=== PATIENT | male | born 1955 | race African-American/Black ===

== ENCOUNTER 2017-03-01 16:57 | Emergency (ER) | payer SELFPAY ==
--- NOTE | ~2017-03-01 | CR21 ---
[facility] A Service of [facility] & [facility] RADIOLOGY TEXT RESULTS PATIENT: BISI DYSON LOCATION: CFTX : 53 UNIT #: [id number] AGE: [address]: Marguerite Putnam APRN SEX: M ORDER DR: [id number] [facility] [address] [place], [place] [address] [id number] E MR#: [id number] Acc #: [id number] NAME: BISI DYSON : 1955 SEX: M STUDY DATE/TIME: 03/01/2017 17:36 UNIT: [facility] ROOM: STUDY DESCRIPTION: CR Ankle Min 3 Views Rt Attending Physician: Marguerite Putnam A.P.R.N. Referring Physician: No Primary Care Physician Ordering Physician: Ed Santi Azar M.D. Primary Care Physician: No Primary Care Physician MEDICAL IMAGING REPORT This report is preliminary unless electronic signature is present EXAM Right ankle HISTORY Pain and swelling right ankle since fall today. History of diabetes. COMMENT Three views of the right ankle are reviewed. There is a separate study of the right foot. There is a previous study of the ankle from 2005. There is soft tissue swelling, worse anteriorly and laterally. There is no acute fracture or definite dislocation. IMPRESSION There is considerable soft tissue swelling laterally and anteriorly, suggestive of ligamentous injury, but no definite acute fracture or dislocation appreciated. Dictated by... Lamar Michael M.D. THIS IS AN ELECTRONICALLY VERIFIED REPORT Lamar Michael M.D. at 03/02/2017 2:48 PM BENITA/cruzito TD: 03/01/2017 23:57 JOB #: [id number] MEDICAL IMAGING REPORT Page 1 of 1 COPY
--- NOTE | ~2017-03-01 | CR127 ---
[facility] A Service of [facility] & [facility] RADIOLOGY TEXT RESULTS PATIENT: BISI DYSON LOCATION: CFTX : 53 UNIT #: [id number] AGE: [address]: Marguerite Putnam APRN SEX: M ORDER DR: [id number] [facility] [address] [place], [place] [address] [id number] E MR#: [id number] Acc #: [id number] NAME: BISI DYSON : 1955 SEX: M STUDY DATE/TIME: 03/01/2017 17:38 UNIT: [place] ROOM: STUDY DESCRIPTION: CR Foot Complete Min 3 View Rt Attending Physician: Marguerite Putnam A.P.R.N. Referring Physician: No Primary Care Physician Ordering Physician: Ed Santi Azar M.D. Primary Care Physician: No Primary Care Physician MEDICAL IMAGING REPORT This report is preliminary unless electronic signature is present EXAM Foot 3 views right HISTORY Patient fell today and has foot pain and swelling. COMMENT Three views of the right foot are reviewed. No previous. There is soft tissue swelling appreciated anteriorly and laterally at the level of the ankle, but there is no acute fracture, dislocation or radiopaque foreign body appreciated. IMPRESSION Soft tissue swelling region of the ankle without acute fracture, dislocation or radiopaque foreign body appreciated right foot. Dictated by... Lamar Michael M.D. THIS IS AN ELECTRONICALLY VERIFIED REPORT Lamar Michael M.D. at 03/02/2017 2:48 PM BENITA/psc TD: 03/02/2017 00:00 JOB #: [id number] MEDICAL IMAGING REPORT Page 1 of 1 COPY
[~2017-03-01 16:57] MED LIST: DEPRESSION MED; DIABETIC MED; HCTZ PO; LISINOPRIL PO; METFORMIN PO; TOPROL XL PO; ZANTAC PO; ZOCOR PO
== END 2017-03-01 18:47 | disposition home or self-care (01) ==
LOC: CFTX 16:57
DX: S93.401A Sprain of unspecified ligament of right ankle, initial encounter (principal); I10 Essential (primary) hypertension; E11.9 Type 2 diabetes mellitus without complications; Z88.5 Allergy status to narcotic agent; Z79.899 Other long term (current) drug therapy; X50.1XXA Overexertion from prolonged static or awkward postures, initial encounter; Y92.009 Unspecified place in unspecified non-institutional (private) residence as the place of occurrence of the external cause
CPT/HCPCS: 29540; 73610; 73630; 99283